=== PATIENT | female | born 1950 | race Caucasian/White ===

== ENCOUNTER → 2017-07-25 | Outpatient (CLI) | payer MEDICARE, OTHER ==
[~2017-07-25] MED LIST: ASPI81CH3 CHEW; COMMODE 3-IN-11 MIS; CPMMACHINE; ENOX40P SQ; ESTR2MIS PO; HYDR-3288 PO; WALKER WHEELS/F1 MIS
[2017-07-25 10:15] LABS: APTT (PATIENT) 27.4 SEC (24.3-30.1); PROTHROMBIN TIME - PATIENT 10.7 SEC (9.8-11.6)
[2017-07-25 10:20] LABS: AUTOMATED NEUTROPHIL # 2.8 TH/MM3 (1.8-7.7); BASOPHIL # 0.1 TH/MM3 (0-0.2); BASOPHIL % 0.9 % (0.0-2.0); EOSINOPHIL # 0.2 TH/MM3 (0-0.4); EOSINOPHIL % 3.1 % (0.0-4.0); HEMATOCRIT 38.9 % (35.0-46.0); HEMO FLAGS DIFF FINAL; LYMPH % 41.6 % (9.0-44.0); LYMPHOCYTE # 2.6 TH/MM3 (1.0-4.8); MEAN CELL VOLUME 90.5 FL (80.0-100.0); MEAN CORPUSCULAR HEMOGLOBIN 30.3 PG (27.0-34.0); MEAN CORPUSCULAR HGB CONC 33.5 % (32.0-36.0); NEUT % 44.4 % (16.0-70.0); PLATELET COUNT 210 TH/MM3 (150-450); WHITE BLOOD COUNT 6.4 TH/MM3 (4.0-11.0)
[2017-07-25 10:28] LABS: ANION GAP 7 MEQ/L (5-15); AST (GOT) 17 U/L (15-37); BLOOD UREA NITROGEN 18 MG/DL (7-18); CHLORIDE 105 MEQ/L (98-107); GLOMERULAR FILTRATION RATE 84 ML/MIN (>89); GLUCOSE,FASTING 92 MG/DL (74-99); POTASSIUM 4.4 MEQ/L (3.5-5.1); SODIUM (NA) 139 MEQ/L (136-145)
[2017-07-25 10:33] LABS: ALKALINE PHOSPHATASE 121 U/L (45-117); ALT (GPT) 21 U/L (10-53); TOTAL BILIRUBIN ADULT 0.4 MG/DL (0.2-1.0)
[2017-07-25 10:51] LABS: WESTERGREN SEDIMENTATION RATE 9 mm/hr (0-30)
[2017-07-25 11:08] LABS: BACTERIA, URINE RARE /hpf; BLOOD, URINE NEG (NEG); COMMENT (UR) CULT NOT INDICATED; CULTURE IF INDICATED CULT NOT INDICATED; GLUCOSE,URINE NEG (NEG); KETONE, URINE NEG (NEG); MUCUS URINE FEW /lpf (OCC); NITRITE,URINE NEG (NEG); SQUAMOUS EPITHELIAL CELL URINE <1 /hpf (0-5); URINE COLOR YELLOW (YELLW/STRAW)
--- NOTE | 2017-07-25 12:03 | RADRPT ---
EXAM DATE/TIME: 07/25/2017 11:46 [facility] COMPARISON: No previous studies available for comparison. INDICATIONS : Evaluate for pneumonia,pneumothorax or communicble disease. MEDICAL HISTORY : None. SURGICAL HISTORY : None. ENCOUNTER: Initial ACUITY: 1 day PAIN SCORE: 0/10 LOCATION: Bilateral upper chest FINDINGS: PA and lateral views of the chest demonstrate the lungs to be symmetrically aerated without evidence of mass, infiltrate or effusion. The cardiomediastinal contours are unremarkable. Osseous structure s are intact. CONCLUSION: Negative for pneumothorax. Vitor Stanton MD FACR on July 25, 2017 at 12:01 Board Certified Radiologist. This report was verified electronically.
--- NOTE | 2017-07-25 13:39 | EKG ---
Date Performed: 07/25/2017 Time Performed: 09:49:20 PTAGE: 66 years EKG: Sinus rhythm possible SEPTAL MYOCARDIAL INFARCTION, OF INDETERMINATE AGE ABNORMAL ECG NO PREVIOUS TRACING DOCTOR: Pete Bender Interpretating Date/Time 07/25/2017 13:38:27
== END ==
LOC: CPRE 09:01
PROVIDERS: ATTEND Orthopaedic Surgery Sports Medicine
DX: Z01.812 Encounter for preprocedural laboratory examination (principal); Z01.811 Encounter for preprocedural respiratory examination; Z01.810 Encounter for preprocedural cardiovascular examination; M25.50 Pain in unspecified joint; M17.11 Unilateral primary osteoarthritis, right knee; Z79.01 Long term (current) use of anticoagulants; Z96.60 Presence of unspecified orthopedic joint implant
CPT/HCPCS: 36415; 71020; 80053; 81001; 85025; 85610; 85652; 85730; 93005

== ENCOUNTER 2017-08-11 05:28 | Inpatient (IN) | payer MEDICARE, OTHER ==
[~2017-08-11] VITALS: Ht 167.6 cm; Wt 81.9 kg
[~2017-08-11 05:28] MED LIST changes: -ASPI81CH3 CHEW; -COMMODE 3-IN-11 MIS; -CPMMACHINE; -ENOX40P SQ; -HYDR-3288 PO; -WALKER WHEELS/F1 MIS
[2017-08-11] MEDS ORDERED: SODIUM CHLORID 0.9% 500 ML IV PRN (06:00)
[2017-08-11] MEDS ORDERED: CHLORHEXIDINE GLUCONATE 2 % 1 PACK (2 CLOTHS) TOPICAL PRN (06:00)
[2017-08-11] MEDS ORDERED: LACTATED RINGER'S 1000 ML IV PRN (06:00)
[2017-08-11] MEDS ORDERED: POVIDONE IODINE 5% (ANTISEPSIS KIT) 4 APPLICATIONS EACH NARE PRN (06:00)
[2017-08-11] MEDS ORDERED: METOPROLOL TARTRATE 25 MG TAB PO PRN (06:00)
[2017-08-11] MEDS ORDERED: DEXAMETHASONE SOD PHOS 20 MG/5 ML VIAL IV PRN (06:00)
[2017-08-11] MEDS ORDERED: INSULIN HUMAN REGULAR 1,000 UNITS/10 ML VIAL SQ PRN (06:00)
[2017-08-11] MEDS ORDERED: TRANEXAMIC ACID INJ 1,230 MG in SODIUM CHLORIDE 0.9% INJ 100 ML IV SCH (06:15)
[2017-08-11] MEDS ORDERED: VANCOMYCIN 1000 MG/NS 250 ML (for <70 kg) IV SCH ×2 (06:15)
[2017-08-11] MEDS ORDERED: CHLORHEXIDINE GLUCONATE 4% SOLN 120 ML BTL TOPICAL SCH (06:15)
[2017-08-11] MEDS ORDERED: TRANEXAMIC PERI-ARTICULAR 3,000 MG/NS 100 ML P-ARTICULR SCH ×2 (06:15)
[2017-08-11] MEDS ORDERED: ROPIVACAINE PERI-ARTICULAR INJECTION. P-ARTICULR SCH ×5 (06:15)
[2017-08-11] MEDS ORDERED: ceFAZolin 2 GM PREMIX 50 ML IV SCH (06:15)
[2017-08-11] MEDS ORDERED: POVIDONE IODINE 7.5% SCRUB 118 ML BOTTLE TOPICAL SCH (06:15)
[2017-08-11] MEDS ORDERED: BISACODYL 10 MG SUPP RECTAL PRN (07:00)
[2017-08-11] MEDS ORDERED: diphenhydrAMINE HCL 50 MG/ML VIAL IV PRN (07:00)
[2017-08-11] MEDS ORDERED: ONDANSETRON HCL 4 MG/2 ML VIAL IVP PRN (07:00)
[2017-08-11] MEDS ORDERED: ACETAMINOPHEN/HYDROcodone 325 MG/7.5 MG TAB PO PRN (07:00)
[2017-08-11] MEDS ORDERED: MORPHINE SULFATE 4 MG/ML INJ IV PUSH PRN (07:00)
[2017-08-11] MEDS ORDERED: Post-op Orders (for Pharmacy) MISC XX ONE (07:00)
[2017-08-11] MEDS ORDERED: SODIUM CHLORIDE 0.9% FLUSH 5 ML FLUSH IVF PRN (07:00)
[2017-08-11] MEDS ORDERED: ZOLPIDEM TARTRATE 5 MG TAB PO PRN (07:00)
[2017-08-11] MEDS ORDERED: ENOX40P SQ (07:01)
[2017-08-11] MEDS ORDERED: HYDR-3288 PO (07:01)
[2017-08-11] MEDS ORDERED: ASPI81CH3 CHEW (07:02)
[2017-08-11] MEDS ORDERED: GENTAMICIN SULFATE 80 MG/2 ML VIAL ONE ×2 (07:05)
[2017-08-11] MEDS ORDERED: ACETAMINOPHEN 1000 MG/100 ML 100 ML IV ONE (07:46)
[2017-08-11] MEDS ORDERED: APREPITANT 40 MG CAP ONE (07:46)
[2017-08-11] MEDS: SODIUM CHLORIDE 0.9% FLUSH 5 ML FLUSH IVF SCH ×2 (09:00→20:12)
[2017-08-11] MEDS ORDERED: ESTRADIOL 2 MG PO SCH (09:00)
[2017-08-11] MEDS ORDERED: PROPOFOL 500 MG/50 ML INJ 50 ML ONE (09:35)
[2017-08-11] MEDS ORDERED: DO NOT ADM ANY ANTICOAGULANT DRUGS PRN (11:09)
[2017-08-11] MEDS: SODIUM CHLOR 0.9% 1000 ML INJ 1,000 ML IV SCH ×2 (11:45→16:58)
[2017-08-11] MEDS ORDERED: ceFAZolin 1,000 MG/NS 100 ML IV ONE ×4 (12:00)
[2017-08-11] MEDS ORDERED: LIDOCAINE HCL 1% PF 5 ML AMPULE OTHER ONE (12:00)
[2017-08-11] MEDS ORDERED: PROPOFOL 200 MG/20 ML AMP IV ONE (12:00)
[2017-08-11] MEDS ORDERED: PHENYLEPH/NS 1000 MCG/10 ML SYR IV ONE (12:00)
[2017-08-11] MEDS ORDERED: ePHEDrine/NS 25 MG/5 ML SYR IV ONE (12:00)
[2017-08-11] MEDS ORDERED: MIDAZOLAM HCL 2 MG/2 ML VIAL IV ONE (12:00)
[2017-08-11] MEDS ORDERED: ONDANSETRON HCL 4 MG/2 ML VIAL IV PUSH ONE (12:00)
--- NOTE | 2017-08-11 12:16 | RADRPT ---
EXAM DATE/TIME: 08/11/2017 11:50 [facility] COMPARISON: No previous studies available for comparison. INDICATIONS : Post op right total knee. MEDICAL HISTORY : None. SURGICAL HISTORY : None. ENCOUNTER: Initial ACUITY: 1 day PAIN SCORE: Non-responsive. LOCATION: Right knee. FINDINGS: Two view examination of the right knee demonstrates postoperative right total knee replacement. Air a nd fluid in the soft tissues. Normal alignment. CONCLUSION: 1. Postoperative right total knee replacement with air and fluid in the soft tissues. Normal alignmen t. Elías Isabel MD on August 11, 2017 at 12:14 Board Certified Radiologist. This report was verified electronically.
[2017-08-11] MEDS ORDERED: *morphine SULFATE 8 MG/ML PERIprocedure ONLY ONE (12:20)
--- NOTE | 2017-08-11 13:12 | HHI.DCPOC ---
Discharge Care Plan Diagnosis: (1) Primary localized osteoarthrosis, lower leg Your Health Problems Are: Difficulty with ADL Goals to Promote Your Health * To prevent worsening of your condition and complications * To maintain your health at the optimal level Directions to Meet Your Goals Take your medications as prescribed Follow your dietary instruction Follow activity as directed Keep your appointments as scheduled Take your immunizations and boosters as scheduled If your symptoms worsen call your PCP, if no PCP go to Urgent Care Center or Emergency Room Smoking is Dangerous to Your Health. Avoid second hand smoke Call the 24-hour hour crisis hotline for domestic abuse at Fidel Powell Aug 11, 2017 13:12
--- NOTE | 2017-08-11 13:13 | HHI.FF ---
Face to Face Verification Diagnosis: (1) Primary localized osteoarthrosis, lower leg Physical Therapy Gait training, Safety evaluation, Transfer training, bed to chair Knee: Total knee, Protocol: Right, Full weight bearing Right LE Weight Bearing: WB as tolerated Nursing RN: 3 days/week x 2 weeks Nursing: Les teaching, Dressing changes Dressing Changes: Daily dressing change I have seen patient Layla Caldwell on 08/11/17. My clinical findings support the need for the requested home health care services because: Limited ability to care for self High risk of falls I certify that my clinical findings support that this patient is homebound because: Post-op weakness Unsteady gait/balance Fidel Powell Aug 11, 2017 13:12
[2017-08-11] MEDS ORDERED: WALKER WHEELS/F1 MIS (13:15)
[2017-08-11] MEDS ORDERED: COMMODE 3-IN-11 MIS (13:15)
[2017-08-11] MEDS ORDERED: CPMMACHINE (13:15)
[2017-08-11] MEDS: ACETAMINOPHEN/HYDROcodone 325 MG/7.5 MG TAB PO PRN ×2 (16:00→20:20)
[2017-08-11 17:52] VITALS: BP 101/66; PULSE 61; RESP 18; TEMP 96.6; O2SAT 100
[2017-08-11 19:34] VITALS: BP 108/65; PULSE 78; RESP 18; TEMP 95.6; O2SAT 99
[2017-08-11] MEDS: FAMOTIDINE 20 MG TAB PO SCH (20:20)
[2017-08-11 23:53] VITALS: BP 103/58; PULSE 81; RESP 18; TEMP 96.6; O2SAT 99
[2017-08-12] VITALS (10 sets, daily range): BP systolic 83–119; BP diastolic 44–64; PULSE 61–79; RESP 17–18; TEMP 96.4–98.7; O2SAT 95–99
[2017-08-12] MEDS: SODIUM CHLOR 0.9% 1000 ML INJ 1,000 ML IV SCH ×3 (02:31→20:10)
[2017-08-12] MEDS: ACETAMINOPHEN/HYDROcodone 325 MG/7.5 MG TAB PO PRN ×4 (04:48→18:54)
--- NOTE | 2017-08-12 06:05 | MB ---
cc: JOHN SUAREZ MD DATE OF CONSULTATION 08/11/2017 DATE OF ADMISSION 08/11/[address] Fidel Davis REASON FOR CONSULTATION Assist in postop medical management. HISTORY OF PRESENTING ILLNESS This is a pleasant 66-year-old female with prior history of obesity, osteoarthritis and allergic rhinitis. She is otherwise in decent shape. She was having problem with bilateral knees for quite some time along with lower back pain. She was treated conservatively with analgesics and NSAID without any significant relief of symptoms. Imaging studies confirmed the presence of severe arthritis affecting bilateral knees. Dr. Fidel Davis recommended total knee replacement arthroplasty. The patient received preop medical clearance by her primary care physician. She was brought to the hospital electively and she underwent right total knee replaced arthroplasty. She is currently resting in bed. Her knee pain is in control. She denies chest pain, shortness of cough, cough or sputum production. She is . PAST MEDICAL HISTORY This patient is significant for - 1. Osteoarthritis. 2. Degenerative disk effecting the lower back. 3. Allergic rhinitis. 4. Obesity. PAST SURGICAL HISTORY Significant for - 1. arthroscopy of right knee procedure in the past. 2. Colonoscopy last year. SOCIAL HISTORY Denies smoking. Drinks alcohol, usually one glass of wine in the evening. She denies any drug abuse. She is retired from IT department. She is and lives with her . HOME MEDICATIONS 1. Aspirin 81 mg daily. 2. [place] 7.5 1-2 p.o. p.r.n. 3. Estring 2 mg. 4. She was also taking Aleve. 5. Antihistamines on a p.r.n. basis. FAMILY HISTORY Both of her parents are . Mother at the age of 90 due to old age. She also had rheumatoid arthritis. Dad at age of 74 from bone cancer. REVIEW OF SYSTEMS The patient has headache, dizziness, loss of conscious. Denies sore throat, dysphagia, odynophagia. Denies nausea, vomiting, abdominal pain. Denies chest pain, shortness of breath, orthopnea, paroxysmal nocturnal dyspnea. Denies change in bowel pattern. There is no history of melena or bright red blood per rectum. She denies dysuria or hematuria. She has arthritic pain in the lower back and also left knee and she is contemplating left knee replacement in the future. Otherwise review of systems is negative. PHYSICAL EXAMINATION GENERAL: A middle-aged female lying in bed, not in any acute distress. She is awake and alert. She is oriented x3. VITAL SIGNS: Blood pressure 105/69, pulse of 66, respirations 19, temperature 97.8 O2 sat 99%. HEAD EXAMINATION: Normocephalic, atraumatic. EYE EXAMINATION: Extraocular muscles intact. Pupils round and reactive. No icterus or significant pallor. ENT: No throat congestion. No oral ulcers or thrush. Ears clear. NECK: Supple. No JVD. No lymph node bruits. CARDIOVASCULAR: S1, S2 audible. Regular rhythm. No murmur or gallop present. LUNGS: Clear to auscultation. No crackles or rhonchi appreciated. ABDOMEN: Soft, protuberant, nontender. Positive bowel sounds. EXTREMITIES: Right knee is heavily bandaged, dressing intact. Both feet are warm to touch. Homans' sign is negative. She is awake and alert. She is oriented x3. No facial asymmetry. Moves bilateral upper and left lower extremity freely. LABORATORY DATA On July 25, white count 6.4, hemoglobin 13.0, hematocrit 38.9, platelet count of 200, MCV of 90.5. Sodium 139, potassium 4.4, chloride 105, bicarb 27.0, BUN of 18, creatinine 0.70, glucose 92, calcium 8.7. LFTs essentially unremarkable except for slightly elevated alkaline phosphatase of 121. Urinalysis was essentially unremarkable. ASSESSMENT 1. Osteoarthritis of bilateral knees status post right total knee replacement arthroplasty postop day #0. 2. Degenerative disc disease affecting low back. 3. Allergic rhinitis. 4. Obesity. PLAN 1. Postop care per Orthopedic and antibiotic prophylaxis. The patient still getting IV Ancef with vancomycin. 2. Analgesics for pain control. 3. Wound care. 4. DVT prophylaxis - subcu Lovenox has been ordered 5. PT evaluation. CPM twice a day. 6. Protonix and Pepcid for GI protection. 7. Continue home medications. 8. Follow CBC and electrolytes. 9. Consult [facility] for discharge planning. The patient is hoping to go home with home health care. Further management of this patient will depend on the hospital course. Thank you, Dr. Davis, for this consultation. I will follow the patient with you. I have discussed the findings with the patient and her who is present at the bedside and have answered all of their questions. MD IVANA Cook/ZA /7:06 PM /5:43 AM
[2017-08-12] MEDS: SODIUM CHLORIDE 0.9% FLUSH 5 ML FLUSH IVF SCH ×2 (08:08→20:03)
--- NOTE | 2017-08-12 08:18 | PD.ORT.PN ---
Subjective Post Op Day #: 1 Subjective Remarks pain under control Objective Vitals Vital Signs Date Time Temp Pulse Resp B/P (MAP) Pulse Ox O2 Delivery O2 Flow Rate FiO2 08/12/17 04:50 97.3 76 18 102/60 (74) 95 08/11/17 23:53 96.6 81 18 103/58 (73) 99 08/11/17 19:34 95.6 78 18 108/65 (79) 99 08/11/17 17:52 96.6 61 18 101/66 (78) 100 08/11/17 16:15 97.8 66 19 115/69 (84) 99 Room Air 08/11/17 15:35 63 17 134/72 (92) 100 Room Air 08/11/17 14:15 68 17 123/61 (81) 100 Room Air 08/11/17 13:15 75 17 118/56 (76) 100 Room Air 08/11/17 12:45 65 17 119/65 (83) 99 Room Air 08/11/17 12:30 68 16 119/63 (81) 99 Room Air 08/11/17 12:15 66 17 118/63 (81) 97 Room Air 08/11/17 12:00 72 17 119/60 (79) 98 Room Air 08/11/17 11:45 73 17 117/74 (88) 98 Room Air 08/11/17 11:30 78 15 113/72 (86) 100 Room Air 08/11/17 11:13 96.4 76 15 116/73 (87) 99 Room Air I/O 08/11/17 08/11/17 08/11/17 08/12/17 08/12/17 08/12/17 07:00 15:00 23:00 07:00 15:00 23:00 Intake Total 1550 ml 600 ml 100 ml 480 ml Output Total 1100 ml 500 ml 1800 ml Balance 450 ml 100 ml 100 ml -1320 ml Intake Oral 480 ml IV Total 150 ml 600 ml 100 ml Other 1400 ml Output Urine Total 1000 ml 500 ml 1800 ml Estimated Blood Loss 100 ml # Bowel Movements 0 Objective Remarks in bed, nad incision no erythema, no drainage neg homans nvi Assessment & Plan Ortho Post Op Day #: 1 Problem List: Assessment and Plan s/p R TKA wbat daily dressing changes lovenox d/c planning home with hhc and pt - cleared today if does well with PT rx in chart f/up dr. dale 2 weeks Fidel Powell Aug 12, 2017 08:18
[2017-08-12] MEDS ORDERED: INFLUENZA VIRUS VACCINE (QUADRIVALENT) 0.5 ML SYR IM ONE (10:00)
[2017-08-12] MEDS ORDERED: PNEUMOCOCCAL POLYVALENT INJ 25 MCG/0.5 ML SYR IM ONE (10:00)
[2017-08-12] MEDS: ENOXAPARIN SODIUM 40 MG/0.4 ML SYRINGE SQ SCH (10:00)
[2017-08-12 10:02] LABS: HEMATOCRIT 32.7 % (35.0-46.0); MEAN CELL VOLUME 90.3 FL (80.0-100.0); MEAN CORPUSCULAR HEMOGLOBIN 30.1 PG (27.0-34.0); MEAN CORPUSCULAR HGB CONC 33.3 % (32.0-36.0); PLATELET COUNT 199 TH/MM3 (150-450); RED BLOOD COUNT 3.62 MIL/MM3 (4.00-5.30); RED CELL DISTRIBUTION WIDTH 13.9 % (11.6-17.2); REVIEW FLAG FINAL; WHITE BLOOD COUNT 10.9 TH/MM3 (4.0-11.0)
--- NOTE | 2017-08-12 10:04 | HHI.PR ---
Subjective Subjective Remarks Was a little dizzy when she got up to brush her teeth but otherwise feels better now Right knee pain minimal No fever No chest pain No shortness of breath Good appetite No nausea, no vomiting at bedside Review of Systems Constitutional Constitutional Remarks 12 point review of systems completed, negative except as noted Vitals/Results Intake & Output 08/12/17 08/12/17 08/13/17 15:00 23:00 07:00 Intake Total 480 ml Output Total 1800 ml Balance -1320 ml Intake Oral 480 ml Output Urine Total 1800 ml # Bowel Movements 0 Vital Signs Vital Signs Date Time Temp Pulse Resp B/P (MAP) Pulse Ox O2 Delivery O2 Flow Rate FiO2 08/12/17 08:00 96.4 61 18 102/59 (73) 98 08/12/17 04:50 97.3 76 18 102/60 (74) 95 08/11/17 23:53 96.6 81 18 103/58 (73) 99 08/11/17 19:34 95.6 78 18 108/65 (79) 99 08/11/17 17:52 96.6 61 18 101/66 (78) 100 08/11/17 16:15 97.8 66 19 115/69 (84) 99 Room Air 08/11/17 15:35 63 17 134/72 (92) 100 Room Air 08/11/17 14:15 68 17 123/61 (81) 100 Room Air 08/11/17 13:15 75 17 118/56 (76) 100 Room Air 08/11/17 12:45 65 17 119/65 (83) 99 Room Air 08/11/17 12:30 68 16 119/63 (81) 99 Room Air 08/11/17 12:15 66 17 118/63 (81) 97 Room Air 08/11/17 12:00 72 17 119/60 (79) 98 Room Air 08/11/17 11:45 73 17 117/74 (88) 98 Room Air 08/11/17 11:30 78 15 113/72 (86) 100 Room Air 08/11/17 11:13 96.4 76 15 116/73 (87) 99 Room Air Lab Results Laboratory Tests Test 08/12/17 09:37 Physical Exam General General Appearance: Well Developed, Well Nourished, No Acute Distress, Comfortable Eyes Eye Exam: Pupils Equal, Pupils Reactive Ears & Nose Ears & Nose Exam: Nasal Mucosa [place] Throat Throat Exam: Oral Mucosa [place] & Moist Neck Neck Exam: Neck Supple, Trachea Midline Pulmonary Resp Exam: Clear Bilaterally, No Distress Cardiology CV Exam: Regular, Good Perfusion Gastrointestinal/Abdomen GI Exam: Soft, Non-Tender, Bowel Sounds Present, Non-Distended Musculoskeletal MS Remarks Right knee dressing dry and intact Integumentary Skin Exam: Warm, Intact Extremeties Extremities Exam: Pedal Pulses Palpable, Trace Edema (right leg) Neurologic Neuro Exam: Alert, Awake, Oriented, Speech Clear, Health Care Facilities Inspector Equal VTE Prophylaxis VTE Prophylaxis Device: TEDs VTE Prophylaxis Meds: Lovenox PUD Prophylasis PUD Remarks Pepcid Assessment/Plan Assessment/Plan ASSESSMENT 1. Osteoarthritis of bilateral knees status post right total knee replacement arthroplasty postop day #0. 2. Degenerative disc disease affecting low back. 3. Allergic rhinitis. 4. Obesity. PLAN Postop care per Orthopedic and antibiotic prophylaxis Analgesics for pain control. Wound care DVT prophylaxis - subcu Lovenox PT evaluation. CPM twice a day. Continue home medications Protonix and Pepcid for GI protection Case management for discharge planning, patient is hoping to go home with home health care labs pending for this morning Discussed with RN Discussed with patient and Discussed with attending This patient was seen by myself and Dr. Zimmerman, this note is written on his behalf Rocio Jiang Aug 12, 2017 10:03
[2017-08-12 10:31] LABS: BICARBONATE 23.5 MEQ/L (21.0-32.0); POTASSIUM 3.6 MEQ/L (3.5-5.1)
[2017-08-12] MEDS: FAMOTIDINE 20 MG TAB PO SCH (20:06)
[2017-08-12] MEDS: DOCUSATE SODIUM 100 MG CAP PO SCH (20:06)
[2017-08-12] MEDS: MULTIVITAMINS/MINERALS THERAPEUTIC TAB PO SCH (20:06)
[2017-08-13] MEDS: ACETAMINOPHEN/HYDROcodone 325 MG/7.5 MG TAB PO PRN ×3 (02:27→10:52)
[2017-08-13 08:00] VITALS: BP 94/67; PULSE 78; RESP 17; TEMP 99.4; O2SAT 98
[2017-08-13 08:10] LABS: HEMATOCRIT 28.6 % (35.0-46.0); MEAN CELL VOLUME 90.9 FL (80.0-100.0); MEAN CORPUSCULAR HEMOGLOBIN 30.8 PG (27.0-34.0); MEAN CORPUSCULAR HGB CONC 33.9 % (32.0-36.0); PLATELET COUNT 156 TH/MM3 (150-450); RED BLOOD COUNT 3.14 MIL/MM3 (4.00-5.30); RED CELL DISTRIBUTION WIDTH 13.8 % (11.6-17.2); REVIEW FLAG FINAL; WHITE BLOOD COUNT 8.8 TH/MM3 (4.0-11.0)
--- NOTE | 2017-08-13 08:22 | PD.ORT.PN ---
Subjective Post Op Day #: 2 Subjective Remarks pain under control. feeling better today. Objective Vitals Vital Signs Date Time Temp Pulse Resp B/P (MAP) Pulse Ox O2 Delivery O2 Flow Rate FiO2 08/12/17 23:35 98.7 79 17 110/64 (79) 98 08/12/17 22:00 119/59 (79) 08/12/17 19:33 97.9 76 18 96/62 (73) 96 08/12/17 16:00 97.5 79 18 104/55 (71) 97 08/12/17 14:05 119/61 (80) 08/12/17 12:37 97 21 08/12/17 12:00 96.9 79 18 96/52 (67) 99 08/12/17 10:15 83/44 (57) I/O 08/12/17 08/12/17 08/12/17 08/13/17 08/13/17 08/13/17 07:00 15:00 23:00 07:00 15:00 23:00 Intake Total 100 ml 1280 ml 360 ml 360 ml Output Total 1800 ml Balance 100 ml -520 ml 360 ml 360 ml Intake Oral 1280 ml 360 ml 360 ml IV Total 100 ml Output Urine Total 1800 ml # Voids 1 2 3 # Bowel Movements 0 0 0 Result Diagram: 08/13/17 0740 08/12/17 0937 Objective Remarks in bed, nad, using cpm dressing c/d/i neg homans nvi Assessment & Plan Ortho Post Op Day #: 2 Problem List: Assessment and Plan s/p R TKA wbat daily dressing changes lovenox d/c planning home with hhc and pt - cleared today rx in chart f/up dr. dale 2 weeks Fidel Powell Aug 13, 2017 08:22
[2017-08-13] MEDS: DOCUSATE SODIUM 100 MG CAP PO SCH (08:43)
[2017-08-13] MEDS: MULTIVITAMINS/MINERALS THERAPEUTIC TAB PO SCH (08:43)
[2017-08-13] MEDS: SODIUM CHLORIDE 0.9% FLUSH 5 ML FLUSH IVF SCH (08:46)
[2017-08-13] MEDS: SODIUM CHLOR 0.9% 1000 ML INJ 1,000 ML IV SCH (08:46)
[2017-08-13 08:56] LABS: POTASSIUM 3.6 MEQ/L (3.5-5.1)
--- NOTE | 2017-08-13 09:53 | HHI.PR ---
Subjective Subjective Remarks dizzy yesterday, BP low 80s-resolved today. Just ambulated 400 ft. BP 110s no cp no dizziness no sob no fever going home today no bm yet, passing gas at bedside Review of Systems Constitutional Constitutional Remarks 12 point review of systems completed, negative except as noted Vitals/Results Vital Signs Vital Signs Date Time Temp Pulse Resp B/P (MAP) Pulse Ox O2 Delivery O2 Flow Rate FiO2 08/12/17 23:35 98.7 79 17 110/64 (79) 98 08/12/17 22:00 119/59 (79) 08/12/17 19:33 97.9 76 18 96/62 (73) 96 08/12/17 16:00 97.5 79 18 104/55 (71) 97 08/12/17 14:05 119/61 (80) 08/12/17 12:37 97 21 08/12/17 12:00 96.9 79 18 96/52 (67) 99 08/12/17 10:15 83/44 (57) CBC/BMP: 08/13/17 0740 08/13/17 0740 Lab Results Laboratory Tests Test 08/13/17 07:40 White Blood Count 8.8 TH/MM3 Red Blood Count 3.14 MIL/MM3 Hemoglobin 9.7 GM/DL Hematocrit 28.6 % Mean Corpuscular Volume 90.9 FL Mean Corpuscular Hemoglobin 30.8 PG Mean Corpuscular Hemoglobin Concent 33.9 % Red Cell Distribution Width 13.8 % Platelet Count 156 TH/MM3 Mean Platelet Volume 10.0 FL Blood Urea Nitrogen 10 MG/DL Creatinine 0.69 MG/DL Random Glucose 100 MG/DL Calcium Level 8.2 MG/DL Sodium Level 139 MEQ/L Potassium Level 3.6 MEQ/L Chloride Level 108 MEQ/L Carbon Dioxide Level 26.0 MEQ/L Anion Gap 5 MEQ/L Estimat Glomerular Filtration Rate 85 ML/MIN Physical Exam General General Appearance: Well Developed, Well Nourished, No Acute Distress, Comfortable Eyes Eye Exam: Pupils Equal, Pupils Reactive Ears & Nose Ears & Nose Exam: Nasal Mucosa [place] Throat Throat Exam: Oral Mucosa [place] & Moist Neck Neck Exam: Neck Supple, Trachea Midline Pulmonary Resp Exam: Clear Bilaterally, No Distress Cardiology CV Exam: Regular, Good Perfusion Gastrointestinal/Abdomen GI Exam: Soft, Non-Tender, Bowel Sounds Present, Non-Distended Musculoskeletal MS Remarks Right knee dressing dry and intact Integumentary Skin Exam: Warm, Intact Extremeties Extremities Exam: Pedal Pulses Palpable, Trace Edema (right leg) Neurologic Neuro Exam: Alert, Awake, Oriented, Speech Clear, Production Assembly Operator Equal VTE Prophylaxis VTE Prophylaxis Device: TEDs VTE Prophylaxis Meds: Lovenox PUD Prophylasis PUD Remarks Pepcid Assessment/Plan Assessment/Plan ASSESSMENT 1. Osteoarthritis of bilateral knees status post right total knee replacement arthroplasty postop day #0. 2. Degenerative disc disease affecting low back. 3. Allergic rhinitis. 4. Obesity. PLAN Postop care per Orthopedic and antibiotic prophylaxis Analgesics for pain control. Wound care DVT prophylaxis - subcu Lovenox PT evaluation. CPM twice a day. Continue home medications Protonix and Pepcid for GI protection Dizziness with hypotension yesterday, given IVF better today, ambulated 400 ft Labs reviewed, HH stable Case management for discharge planning, going home today stable for dc Discussed with RN Discussed with patient and Discussed with attending This patient was seen by myself and Dr. Zimmerman, this note is written on his behalf Rocio Jiang Aug 13, 2017 09:53
[2017-08-13] MEDS: ENOXAPARIN SODIUM 40 MG/0.4 ML SYRINGE SQ SCH (10:52)
--- NOTE | 2017-08-13 13:11 | MD ---
cc: AMBER DAVIS M.D. ADMISSION DATE: 08/11/2017 DISCHARGE DATE: 08/13/2017 ADMITTING DIAGNOSIS Severe degenerative osteoarthritis right knee DISCHARGE DIAGNOSIS Severe degenerative osteoarthritis right knee HISTORY OF PRESENT ILLNESS Mrs. Caldwell is a 66-year-old female who presented to the [facility] for evaluation by Dr. Amber Davis regarding her severe and progressive right knee pain. The patient states the pain has been bothering her for greater than one year duration and currently is inhibiting her activities of daily living. She notes her pain is exacerbated by weightbearing activities and is a severe constant aching sensation. She has no alleviating factors at this point in time although in the past, she has tried medications, bracing, physical therapy, home exercise programs and corticosteroid injections without relief of symptoms. She does have x-ray evidence of severe degenerative osteoarthritis of the right knee. While in the office, the patient was counseled on her diagnosis and treatment options. The risks, benefits, and indications all were discussed in great detail. The patient did elect to proceed with surgical intervention to include a right total knee arthroplasty. The patient does also have allergies to metals and is was discussed with the patient. She did receive a [employer] Oxinium right total knee arthroplasty. Date of surgery 08/11/2017, right total knee arthroplasty. Postop after surgery, the patient admitted to [facility] where she received appropriate medical management, pain control, DVT prophylaxis, as well as physical therapy. DISCHARGE Once being discharged from the hospital, the patient was cleared to go home where she will receive home health care and home physical therapy. She is in stable condition. She may weight-bear as tolerated. The patient is to receive daily dressing changes and has been instructed on appropriate wound care management. The patient has been provided prescriptions for pain control, as well as DVT prophylaxis medication. She was also provided a follow-up appointment in approximately two weeks from her date of surgery. The patient and the patient's have asked appropriate questions which have all been answered. The patient is cleared for discharge. Dictated by ROMEL Avila MD ANYA Rahman/THERESE /8:23 AM /1:09 PM
--- NOTE | 2017-08-22 09:31 | MP ---
cc: AMBER MOYA DATE OF SURGERY 08/11/2017 PREOPERATIVE DIAGNOSIS Right knee osteoarthritis POSTOPERATIVE DIAGNOSES Right knee osteoarthritis PROCEDURE Right total knee arthroplasty SURGEON Dr. Monty Moya PAIRER ROMEL Schulte ANESTHESIA General with an adductor canal femoral nerve block. REVIEW OF SYSTEMS 50 mL COMPLICATIONS None. IMPLANTS USED [employer] Oxinium implant. JUSTIFICATION This patient is a 66-year-old female with history of severe end-stage degenerative osteoarthritis involving the right knee. She has severe disabling pain with standing, walking, ambulation weightbearing activities and severe pain at rest. She has failed greater than three months of nonoperative conservative treatment to include medication therapy, injections, ambulatory assistive aids, home exercise program and activity modification. X-ray of the right knee revealed severe end-stage osteoarthritis with [id number] joint space narrowing, subchondral sclerosis, subchondral cyst osteophyte formation with varus deformity. The patient was counseled as to risks, benefits and alternative to total knee arthroplasty. The risks were discussed which include but limited to anesthesia, bleeding, infection, damage to nerves, blood vessels, pain, stiffness, failure of components, blood clots, pulmonary embolism, even . The patient's is severe. She favored the benefits over the risks and did wish to proceed with surgery. A written consent obtained. The patient identified by name, taken to the operating room, placed supine on the operating room. General anesthesia was administered as well as 2 grams of IV Ancef and 1 gram of IV vancomycin. The anesthesiologist also performed a adductor canal femoral nerve block using ultrasound guidance. A well-padded tourniquet placed on the right thigh. The right lower extremity was prepped draped using isopropyl alcohol, Hibiclens solution and Chloraprep solution. After time-out was performed, an Esmarch bandage was used to exsanguinate the right lower extremity. Tourniquet was inflated to 250 mmHg. A longitudinal incision was made over the anterior aspect of the right knee. A medial parapatellar arthrotomy was performed. The patellar resection guide was used to resect appropriate 9 mm of patella. The patella guide was then placed 3 drill holes placed in the patella, trial fit well. Attention was turned to the femur where an intramedullary guide nicolás was placed and set to remove approximately 10 mm of distal femur at five degrees off the anatomic valgus axis alignment. oscillating saw was used to perform the distal femoral cut. Attention was turned to the tibia where an extramedullary tibial guide was set to remove 9 mm off the high portion of the lateral tibial plateau. The tibial guide was pinned in place and tibia cut was performed. A 5 mm spacer block showed full extension. Attention was turned back to the femur where an AP sizing block was placed and the anterior reference 33 external rotation guide was used to pin the block in place. The anterior posterior and chamfer cuts were performed. PCL box guide block was then pinned in place and PCL was boxed out with a drill as well as osteotome. The medial and lateral meniscus remnants were removed as well as bone and soft tissue debris from posterior portion of the knee. A tibia base was pinned in place and tibia was then punched after drilling. Trial components were evaluated and trial components were cemented in place and the leg achieved full extension to zero degrees, flexion to approximately 140. No evidence of tibial lift-off or varus-valgus. Balance appeared appropriate and symmetric and the patella was noted to track centrally. Tourniquet was deflated. Bovie cautery was used for hemostasis. The surgical wound was thoroughly irrigated with sterile saline pulse lavage antibiotic impregnated solution. The arthrotomy incision was closed with #1 Vicryl suture. Subcutaneous layer with 2-0 Vicryl suture. Skin was closed with Dermabond. Sterile dressing was applied. The patient tolerated the procedure with no intraoperative complications noted. Lewis Powell physician drilling assistant was present during the entire procedure to include patient positioning and procedure itself. The medical necessity of a physician drilling assistant was indicated in this case due to the complexity of the procedure. He assisted with appropriate manipulation of the leg and also traction of muscle, tendon, bone and neurovascular structure. He assisted also with implantation of the bone and also implantation of the prosthetic replacement. MD ANYA Rahman/ /3:34 PM /9:12 AM
== END 2017-08-13 12:06 | disposition home health service (06) | DRG 470 ==
LOC: HSDI 05:28 → EDUNIT# 08:30 → N06A 16:58
PROVIDERS: ADMIT Orthopaedic Surgery Sports Medicine; ATTEND Orthopaedic Surgery Sports Medicine
PROC: 3E0T3BZ Introduction of Anesthetic Agent into Peripheral Nerves and Plexi, Percutaneous Approach (ICD-10-PCS; 2017-08-11)
PROC: 0SRC069 Replacement of Right Knee Joint with Oxidized Zirconium on Polyethylene Synthetic Substitute, Cemented, Open Approach (ICD-10-PCS; principal; 2017-08-11 08:07)
DX: M17.0 Bilateral primary osteoarthritis of knee (principal); I95.9 Hypotension, unspecified; M21.161 Varus deformity, not elsewhere classified, right knee; M25.761 Osteophyte, right knee; E66.9 Obesity, unspecified; M51.36 Other intervertebral disc degeneration, lumbar region; J30.9 Allergic rhinitis, unspecified; R42 Dizziness and giddiness; G62.9 Polyneuropathy, unspecified; Z23 Encounter for immunization; Z68.29 Body mass index [BMI] 29.0-29.9, adult
CPT/HCPCS: 73560; 80048; 85027; 86850; 86900; 86901; 90471; 90472; 90686; 90732; 94150; C1776; G0008; G0009; J0131; J0690; J0735; J1100; J1580; J1650; J1885; J2250; J2270; J2370; J2405; J2795; J3010; J3370; J7030; J7050; J7120; J8501; L1830; Q2038